=== PATIENT | female | born 1985 | race Caucasian/White ===

== ENCOUNTER 2018-02-04 13:15 | Emergency (ER) | payer MEDICAID, OTHER ==
[~2018-02-04] VITALS: Ht 175.3 cm; Wt 84.4 kg
--- NOTE | 2018-02-04 13:54 | ED Cough/URI ---
General Chief Complaint: Cough/Cold/Flu Symptoms Stated Complaint: 15 WKS PREG/CONGESTION/HEAD AND NECK PAIN Nursing Triage Note: PT STATES SHE HAS HAD CONGESTION, SORE THROAT, EAR PAIN, HEADACHE PAIN SINCE MONDAY. PT ALSO REPORTS BEING 15 WEEKS . Source: patient Exam Limitations: no limitations History of Present Illness Date Seen by Provider: Feb 04, 2018 Time Seen by Provider: 13:38 Initial Comments Here with report of sore throat, runny nose, congestion and sinus pain/headache fits on the right side. Also complains of right ear fullness and pain. She is approximately 15 weeks and doesn't know what she can take. No fevers currently. Denies vomiting or breathing problems otherwise. Timing/Duration: getting worse, other (2 days ago) Severity/Quality: moderate, dry cough Prior Episodes/Possible Cause: occasional episodes Modifying Factors: Improves With Rest Associated Symptoms: cough, earache, headache, sinus infection, sore throat Allergies and Home Medications Allergies Coded Allergies: No Known Drug Allergies (Unverified , 02/04/18) Patient Home Medication List Home Medication List Reviewed: Yes Review of Systems Review of Systems Constitutional: see HPI; No chills, No fever EENTM: see HPI Respiratory: see HPI Cardiovascular: no symptoms reported Gastrointestinal: No diarrhea, No vomiting Genitourinary: no symptoms reported : Yes Musculoskeletal: No back pain, No neck pain Psychiatric/Neurological: Headache (frontal mild to moderate and intermittent) ; Denies Weakness Past Pbgfdvt-[id number]-Gjevbl Hx Past Med/Social Hx: Reviewed Nursing Past Med/Soc Hx Patient Social History Alcohol Use: Denies Use Recreational Drug Use: No Smoking Status: Never a Smoker Recent Foreign Travel: No Contact w/Someone Who Travel: No Recent Infectious Disease Expo: No Recent Hopitalizations: No Physical Abuse: No Sexual Abuse: No Seasonal Allergies Seasonal Allergies: No Past Medical History Surgeries: Yes Section, Orthopedic Respiratory: No Cardiac: No Neurological: No Genitourinary: No Musculoskeletal: No Endocrine: Yes Diabetes, Insulin dep Are Your Blood Sugars Over 250: No HEENT: No Cancer: No Psychosocial: No Integumentary: No Blood Disorders: No Family Medical History Reviewed Nursing Family Hx Physical Exam Vital Signs - First Documented 02/04/18 13:21 Temp 97.6 Pulse 91 Resp 12 B/P (MAP) 84/ Pulse Ox 99 O2 Flow Rate 129.00 Capillary Refill : Less Than 3 Seconds Height: 5'9.00" Weight: 186lbs. oz. 84.892990mv; BMI Method:Stated General Appearance: WD/WN, no apparent distress HEENT: PERRL/EOMI, pharynx normal, pharyngeal erythema (mild), other (moderate bilateral nasal congestion with moderate erythema and clear rhinorrhea. Bilateral TMs clear but bulging.) Neck: non-tender, full range of motion, supple, normal inspection; No lymphadenopathy (R), No lymphadenopathy (L) Respiratory: lungs clear, normal breath sounds Cardiovascular: regular rate, rhythm, no murmur Gastrointestinal: non tender, soft Neurologic/Psychiatric: alert, oriented x 3 Skin: normal color, warm/dry Progress/Results/Core Measures Suspected Sepsis Recent Fever Within 48 Hours: No Infection Criteria Present: None New/Unexplained Altered Menta: No Sepsis Screen: No Definite Risk SIRS Temperature:97.6 Pulse: 91 Respiratory Rate: 12 Blood Pressure 84 / Mean: Results/Orders Vital Signs/I&O 02/04/18 13:21 Temp 97.6 Pulse 91 Resp 12 B/P (MAP) 84/ Pulse Ox 99 O2 Flow Rate 129.00 Capillary Refill : Less Than 3 Seconds Progress Note : Progress Note Seen and evaluated. Discharged home with return precautions. Patient verbalize understanding instructions and agreement with plan. Departure Impression Primary Impression: Sinusitis, acute Qualified Codes: J01.90 - Acute sinusitis, unspecified Additional Impression: Viral upper respiratory tract infection Disposition: HOME, SELF-CARE Condition: Stable Departure-Patient Inst. Decision time for Depature: 13:53 Referrals: NO,LOCAL PHYSICIAN (PCP/Family) Primary Care Physician Patient Instructions: Sinusitis, Adult (DC), Viral Upper Respiratory Infection , Adult (DC) Add. Discharge Instructions: All discharge instructions reviewed with patient and/or family. Voiced understanding. You should use Afrin nasal spray, 12 hour relief, 2 sprays to each nostril twice daily for 3 days only and then stop. Do not use more than 3 days. Drink plenty of fluids. You may take Tylenol/acetaminophen 1000 mg every 6 hours as needed for fever or pain. You may use Benadryl/diphenhydramine 25 mg 1 tablet every 6 hours as needed for nasal congestion. Return for worse pain, fever, vomiting, weakness, breathing problems or other concerns as needed. Take medications as directed. If you're not better tomorrow then fill the prescription for the antibiotic and start taking that. Scripts Amoxicillin (Amoxicillin) 500 Mg Capsule 500 MG PO TID, #30 CAP 0 Refills Prov: MARYCHUY BO MD 02/04/18 MARYCHUY BO MD Feb 04, 2018 13:54
[2018-02-04] MEDS ORDERED: AMOX500C2 PO (13:55)
[2018-02-04 14:00] VITALS: BP 129/84
== END 2018-02-04 14:00 | disposition home or self-care (01) ==
LOC: ER 13:17
DX: O99.512 Diseases of the respiratory system complicating pregnancy, second trimester (principal); J06.9 Acute upper respiratory infection, unspecified; J01.90 Acute sinusitis, unspecified; O24.112 Pre-existing type 2 diabetes mellitus, in pregnancy, second trimester; Z3A.15 15 weeks gestation of pregnancy
CPT/HCPCS: 99282